=== PATIENT | male | born 1945 | race Caucasian/White ===

== ENCOUNTER 2018-10-17 10:44 | Emergency (ER) | payer MEDICARE ==
[2018-10-17 11:01] VITALS: BP 145/96
--- NOTE | 2018-10-17 13:43 | XRAY Report ---
Reason: low back pain Procedure Date: 10/17/2018 Accession Number: [id number] / [id number] Procedure: XR - Lumbar Spine 2 View CPT Code: FULL RESULT: EXAM: LUMBOSACRAL SPINE RADIOGRAPHY EXAM DATE: 10/17/2018 01:28 PM. CLINICAL HISTORY: Low back pain. COMPARISONS: None available. TECHNIQUE: 3 views. FINDINGS: Alignment: Incompletely visualized levoconvex curvature of the lower thoracic and lumbar spine. The curvature measures approximately 22 degrees from the superior end plate of T11 to the inferior endplate of L3. Bones: Five [id number] lumbar vertebral bodies are present. The bones are osteopenic. No acute fracture, subluxation, or compression deformity. Nonspecific ringlike metallic devices projecting posterior to the L5 vertebral body and sacrum, which likely represents postoperative change. Disks: Disk space narrowing throughout the lumbar spine with relative sparing of the L4-L5 disk space. Facets: Moderate to severe multilevel degenerative facet arthropathy most significant at L4-L5 and L5-S1. Sacroiliac Joints: Unremarkable. Soft Tissues: The visualized bowel gas pattern is unremarkable. Nonspecific ovoid density measuring 12 mm in maximal diameter projecting at the left iliac wing, which may represent a soft tissue calcification. IMPRESSION: Osteopenia. No acute fracture or malalignment of the lumbar spine. Incompletely visualized levoconvex curvature of the lower thoracic and lumbar spine. Multilevel degenerative joint and disk disease, as described. [facility]IA
[2018-10-17] MEDS ORDERED: CHERRY SYRUP 10 ML UDC PO ONE (13:49)
[2018-10-17] MEDS ORDERED: DEXAMETHASONE 10 MG/ML VIAL PO STA (13:49)
--- NOTE | 2018-10-17 13:51 | ED Physician Documentation ---
PD HPI BACK PAIN - Stated complaint Stated Complaint: BACK PX - Chief complaint Chief Complaint: General - History obtained from History obtained from: Patient, Family - History of Present Illness Timing - onset: How many weeks ago (Onset 2 or 3 weeks ago.) Timing - details: Still present Location: Lower, Right Quality: Pain, Spasm Worsened by: Movement, Twisting Similar symptoms before: Other (Has previously undergone lumbar laminectomy and fusion.) - Additional information Additional information: the patient is a 73-year-old female who presents with lower back pain that started 2 or 3 weeks ago after sitting for about 3 hours doing crafts. She presents now because of continued pain since that time. The pain is worse with movement or twisting. She denies numbness, weakness, fever, or urinary incontinence. Past surgical history is significant for lumbar laminectomy and fusion. She denies history of similar lower back pain since the surgery. She is visiting here from [place]. Review of Systems Constitutional: denies: Fever Nose: denies: Congestion Throat: denies: Sore throat Cardiac: denies: Chest pain / pressure Respiratory: denies: Dyspnea, Cough GI: denies: Abdominal Pain, Nausea, Vomiting : denies: Dysuria, Incontinent Skin: denies: Rash Musculoskeletal: reports: Back pain. denies: Neck pain, Extremity pain Neurologic: denies: Focal weakness, Numbness, Headache PD PAST MEDICAL HISTORY - Past Medical History Neuro: None Endocrine/Autoimmune: None - Past Surgical History Past Surgical History: Yes Ortho: Spine surgery (Lumbar laminectomy and fusion.) - Present Medications Home Medications: Ambulatory Orders Medication Instructions Recorded Confirmed Cyclobenzaprine [Flexeril] 10 mg PO TID PRN #20 tablet 10/17/18 - Allergies Allergies/Adverse Reactions: Allergies Allergy/AdvReac Type Severity Reaction Status Date / Time Sulfa (Sulfonamide AdvReac Rash Verified 10/17/18 10:52 Antibiotics) - Social History Does the pt smoke?: No Smoking Status: Never smoker Additional Social History: Visiting from [place]. PD ED PE NORMAL - Vitals Vital signs reviewed: Yes (Borderline hypertension initially.) - General General: Alert and oriented X 3, Well developed/nourished - HEENT HEENT: Atraumatic - Neck Neck: No bony TTP - Cardiac Cardiac: RRR - Respiratory Respiratory: No respiratory distress, Clear bilaterally - Abdomen Abdomen: Soft, Non tender - Back Back: No CVA TTP, No spinal TTP, Other (There is tenderness to palpation over the right sacroiliac joint. No tenderness to palpation along the spinous processes.) - Derm Derm: No rash - Extremities Extremities: No edema, No calf tenderness / cord, Other (Straight leg raise test is negative bilaterally.) - Neuro Neuro: Alert and oriented X 3, No motor deficit, No sensory deficit Results - Vitals Vitals: Oxygen O2 Source Room air - Rads (name of study) LS spine xrays Radiology: Prelim report reviewed, EMP read contemporaneously, See rad report PD MEDICAL DECISION MAKING - ED course Complexity details: reviewed results, re-evaluated patient, considered differential, d/w patient, d/w family ED course: The patient's presentation is most consistent with low back pain, with tenderness localized mostly to the right sacroiliac joint. X-rays of the lumbosacral spine reveal no acute bony abnormality, although there is significant DJD noted. Her presentation does not suggest epidural abscess, spinal stenosis, or cauda equina syndrome. Treatment in the emergency department included administration of dexamethasone 10 mg orally. She is being discharged with a prescription for some Flexeril. I discussed with her and her family the diagnosis, symptomatic treatment and outpatient follow-up, as well as potentially worrisome signs or symptoms that should prompt reevaluation in the emergency department. Departure - Departure Disposition: 01 Home, Self Care Clinical Impression: Low back pain Condition: Stable Instructions: ED Low Back Pain Injury Prescriptions: Cyclobenzaprine [Flexeril] 10 mg PO TID PRN #20 tablet PRN Reason: Spasms Comments: Apply ice pack to your lower back intermittently for the next 3 or 4 days. You can use ibuprofen, up to 800 mg 3 times daily. You can use Flexeril as prescribed if needed for muscle spasms. Let pain be your guide to activity level. Follow-up with your primary physician upon returning to [place]. Return to the emergency department if you develop increasing pain, numbness or weakness, urinary incontinence, or otherwise worsening symptoms. Discharge Date/Time: 10/17/18 14:11
== END 2018-10-17 14:11 | disposition home or self-care (01) ==
LOC: ED 10:44
DX: M54.5 Low back pain (principal)
CPT/HCPCS: 72100; 99283; 99284; A9270